=== PATIENT | female | born 1990 | race Two or more races ===

== ENCOUNTER 2025-03-18 06:20 | Emergency (ER) | payer SELFPAY ==
[2025-03-18 06:23] VITALS: BMI 29.0
[2025-03-18 06:28] VITALS: BP 122/80; PULSE 95; RESP 16; TEMP 36.6; O2SAT 97
--- NOTE | 2025-03-18 06:52 | PD.EDRME ---
Rapid Medical Screening Exam RME Arrival date/time: 03/18/25 06:20 34-year-old female with a history of breast cancer that has metastasized to the ovaries causing her to have a hysterectomy presents to the emergency room with a chief complaint of 10 out of 10 abdominal pain, fever, vomiting, and abdominal distention x 2 days I have greeted and performed a focused initial assessment of this patient. A comprehensive ED assessment and evaluation of the patient, analysis of all test results, and completion of the medical decision making process will be conducted by additional ED providers. Chief Complaint: Abdominal Pain Time Seen by Provider: 03/18/25 06:32 Vital signs: Vital Signs Temperature 97.8 F 03/18/25 06:28 Pulse Rate 95 03/18/25 06:28 Respiratory Rate 16 03/18/25 06:28 Blood Pressure 122/80 03/18/25 06:28 Pulse Oximetry (%) 97 03/18/25 06:28 Oxygen Delivery Method Room Air 03/18/25 06:28 Vital signs reviewed by provider: Yes
--- NOTE | 2025-03-18 07:54 | PC.NURSE ---
PATIENT REFUSED LABS AND STATES WANTS TO WAIT FOR IV DUE TO BE A HARD STICK AND REQUIRING ULTRASOUND GUIDANCE.
[2025-03-18] MEDS: MORPHINE SULF INJ 10 MG/ML VIAL 4 MG IVP (09:13)
[2025-03-18 09:15] LABS: Basophils % (Auto) 0 % (0-2.5); Eosinophils # (Auto) 0.1 Thou/mm3 (0.0-0.5); Eosinophils % (Auto) 1 % (0-10); Hematocrit 28.6 % (36.0-46.0); Hemoglobin 9.3 g/dL (12.0-16.0); Immature Granulocytes % (Auto) 0 % (0-0); Immature Granulocytes Auto 0.01 Thou/mm3 (0.00-0.00); Lymphocytes # (Auto) 1.5 Thou/mm3 (1.0-4.8); Lymphocytes % (Auto) 19 % (10-50); Mean Corpuscular HGB Conc 32.5 g/dl (31.0-37.0); Mean Corpuscular Volume 74 fL (80-100); Monocytes # (Auto) 0.6 Thou/mm3 (0.0-0.8); Monocytes % (Auto) 8 % (0-12); Neutrophils # (Auto) 5.5 Thou/mm3 (1.8-7.7); Neutrophils % (Auto) 71 % (37-80); Nucleated Red Blood Cell % 0 /100 WBC (0); Platelet Count 229 Thou/mm3 (140-440); RDW Standard Deviation 40.2 fL (36.4-46.3); Red Blood Count 3.88 Miln/mm3 (4.00-5.20); White Blood Count 7.7 Thou/mm3 (3.6-11.0)
[2025-03-18 09:18] VITALS: BP 120/76; PULSE 97; RESP 18; TEMP 36.8; O2SAT 98
[2025-03-18 09:30] LABS: Alanine Aminotransferase 96 U/L (10-49); Albumin, Serum 4.2 gm/dL (3.5-5.0); Albumin/Globulin Ratio 1.3 (1.2-2.2); Alkaline Phosphatase 122 U/L (46-116); Anion Gap 9 (7-16); Aspartate Amino Transferase 136 U/L (0-34); BUN/Creatinine Ratio 9 Ratio (12-20); Bilirubin,Total 0.3 mg/dL (0.3-1.2); Blood Urea Nitrogen 8 mg/dL (9-23); Chloride 103 mMol/L (98-107); Creatinine (Component) 0.9 mg/dL (0.6-1.3); Estimated Creatinine Clearance 96.2 mL/min (>60); Globulin 3.3 gm/dL (2.3-3.5); Glucose 126 mg/dL (74-106); Lipase 40 U/L (12-53); Osmolality,Calculated 268 (275-295); Potassium 3.3 mMol/L (3.4-5.1); Sodium 134 mMol/L (136-145); Total Protein 7.5 gm/dL (5.7-8.2); eGFR > 60 See Note
[2025-03-18] MEDS: DiphenhydrAMINE INJ 50 MG/ML VIAL 25 MG IVP (09:37)
--- NOTE | 2025-03-18 09:44 | PC.NURSE ---
Addendum entered by Yogesh Bear RN 03/18/25 11:48: @1030- PT CALLED FROM [facility]; NO ANSWER AT THIS TIME. @1100- PT CALLED FROM [facility] AGAIN; NO ANSWER AT THIS TIME. @1130- PT CALLED FROM [facility] FOR LAST CALL; NO ANSWER AT THIS TIME. PT ELOPED. Original Note: PT STATING WANTING TO LEAVE AT THIS TIME; [facility] AT BEDSIDE TALKING TO PT.
--- NOTE | 2025-03-18 11:45 | PC.NURSE ---
SPOKE TO EMILIE FROM [facility] TO REPORT PT ELOPED WITH 20G LAC; PER EMILIE, WILL HAVE AN OFFICER DO AN AREA CHECK AND HAVE RETURN TO [facility] FOR REMOVAL OF IV IF PT FOUND.
== END 2025-03-18 11:49 | disposition left against medical advice (07) ==
PROVIDERS: Nurse Practitioner Family; Emergency Provider Emergency Medicine
DX: R10.9 Unspecified abdominal pain (principal); Z53.29 Procedure and treatment not carried out because of patient's decision for other reasons; Z85.3 Personal history of malignant neoplasm of breast; Z85.43 Personal history of malignant neoplasm of ovary
CPT/HCPCS: 36415; 80053; 81001; 81025; 83690; 85025; 87086; 96374; 96375; 99281; J1200; J2270